=== PATIENT | female | born 1935 | race Caucasian/White ===

== ENCOUNTER → 2022-12-27 11:20 | Outpatient (BNVA) | payer MEDICARE, OTHER, SELFPAY | PROVIDERS: Family Provider Internal Medicine; Visit Provider Family Medicine | DX: I10 Essential (primary) hypertension (principal); Z98.61 Coronary angioplasty status; Z13.29 Encounter for screening for other suspected endocrine disorder; E53.8 Deficiency of other specified B group vitamins; F03.90 Unspecified dementia, unspecified severity, without behavioral disturbance, psychotic disturbance, mood disturbance, and anxiety; G50.0 Trigeminal neuralgia; Z95.5 Presence of coronary angioplasty implant and graft | CPT/HCPCS: 80053; 80061; 82607; 84443 ==

== ENCOUNTER → 2023-01-26 15:48 | Outpatient (BNVA) | payer MEDICARE, OTHER, SELFPAY | PROVIDERS: Family Provider Internal Medicine; PCP Family Medicine; Visit Provider Internal Medicine Cardiovascular Disease | DX: R07.9 Chest pain, unspecified (principal); I25.10 Atherosclerotic heart disease of native coronary artery without angina pectoris; I10 Essential (primary) hypertension; F03.90 Unspecified dementia, unspecified severity, without behavioral disturbance, psychotic disturbance, mood disturbance, and anxiety; K21.9 Gastro-esophageal reflux disease without esophagitis; I44.0 Atrioventricular block, first degree; I45.19 Other right bundle-branch block | CPT/HCPCS: 93005; 99204 ==

== ENCOUNTER 2023-02-11 09:36 | Outpatient (CLI) | payer MEDICARE, OTHER, SELFPAY ==
--- NOTE | 2023-02-11 10:00 | USCV_ITS ---
Pam Mcclendon Age: 87 Gender: F : 1935 Exam Date: 02/11/2023 10:00 Ordering Phys: Sabrina Chowdhury MD ([email or web address]) Technologist: SARITA Exam Location: [facility] [place] Indication: ASHD BP: 116 / 68 HR: 59 Rhythm: Sinus Technical Quality: Suboptimal MEASUREMENTS (Male / Female) Normal Values 2D ECHO LVOT Diameter 2.0 cm LV Ejection Fraction MOD 2C 68.5 % LV Ejection Fraction 2C AL 69.1 % LA Diameter 2.6 cm LA Width 3.2 cm LA Height 4.3 cm RA Width 3.4 cm RA Height 4.7 cm Aorta at Sinotubular Diameter 2.3 cm IVC Diameter 1.5 cm M-MODE Aortic Annulus Diameter 2.5 cm LA Ao Ratio MM 0.9 MV E Point Septal Separation 0.4 cm DOPPLER AV Peak Velocity 160.0 cm/s LVOT Peak Velocity 113.0 cm/s AV Area Cont Eq vti 2.3 cm squared AV Area Cont Eq pk 2.2 cm squared MV Peak Velocity 118.0 cm/s MV Area PHT 3.3 cm squared Mitral E to A Ratio 0.6 MV E' Velocity 35.5 cm/s Mitral E to MV E' Ratio 9.4 Mitral E to LV E' Lateral Ratio 10.8 Mitral E to LV E' Septal Ratio 8.4 TR Peak Velocity 204.9 cm/s TR Peak Gradient 16.8 mmHg TR Mean Velocity 199.9 cm/s TR Mean Gradient 16.5 mmHg TR Velocity Time Integral 85.8 cm TV Peak E Velocity 35.0 cm/s Right Atrial Pressure 3.0 mmHg Pulmonary Artery Systolic Pressu 19.8 mmHg PV Peak Velocity 111.0 cm/s RV Acceleration Time 0.1 s RV Ejection Time 0.3 s RV AcT/ET 0.2 FINDINGS Left Ventricle Normal left ventricular size and systolic function, EF 62 %. No regional wall motion abnormalities. Right Ventricle The right ventricle is normal in size and function. Right Atrium The right atrium is normal in size. Left Atrium The left atrium is normal in size. Mitral Valve No gross abnormalities noted Aortic Valve No gross abnormalities noted Tricuspid Valve Trace to mild tricuspid valve regurgitation. Pulmonic Valve No gross abnormalities noted Pericardium Normal pericardium without effusion. Aorta Normal ascending aorta dimension. IVC The inferior vena cava appears normal. CONCLUSIONS Normal left ventricular size and systolic function, EF 62 %. No regional wall motion abnormalities. Normal cardiac chamber sizes. No gross valvular abnormalities. Trace to mild tricuspid valve regurgitation. There is no pericardial effusion. There are no intracardiac masses. No similar previous studies are available for comparison Dr Sabrina Chowdhury MD FACC (Electronically Signed) Final Date: 11 February 2023 17:42 S
== END 2023-02-11 09:37 | disposition home or self-care (01) ==
PROVIDERS: PCP Family Medicine; Visit Provider Internal Medicine Cardiovascular Disease
DX: R06.09 Other forms of dyspnea (principal); I25.10 Atherosclerotic heart disease of native coronary artery without angina pectoris
CPT/HCPCS: 93306

== ENCOUNTER → 2023-04-06 09:12 | Outpatient (BNVA) | payer MEDICARE, OTHER, SELFPAY | PROVIDERS: PCP Family Medicine; Visit Provider Family Medicine | DX: M19.041 Primary osteoarthritis, right hand (principal); M25.541 Pain in joints of right hand | CPT/HCPCS: 73130 ==

== ENCOUNTER 2023-11-15 12:25 | Emergency (ER) | payer MEDICARE, OTHER, SELFPAY ==
--- NOTE | 2023-11-15 12:29 | CTR_ITS ---
PROCEDURE INFORMATION: Exam: CT Cervical Spine Without Contrast Exam date and time: 11/15/2023 1:07 PM Age: 88 years old Clinical indication: Injury or trauma; Fall; Blunt trauma TECHNIQUE: Imaging protocol: Computed tomography of the cervical spine without contrast. Radiation optimization: All CT scans at this facility use at least one of these dose optimization techniques: automated exposure control; mA and/or kV adjustment per patient size (includes targeted exams where dose is matched to clinical indication); or iterative reconstruction. COMPARISON: CT head wo con* [id number] 11/15/2023 1:07 PM RADIATION DOSE METRICS: Total DLP (mGy-cm): 133 FINDINGS: Bones: Diffuse osteopenia. No fracture. No destructive bony process identified. Mild right C2-C3 primary facet osteoarthritis. Moderate left C3-C4 primary facet osteoarthritis. Moderate left C3-C4 neural foraminal narrowing. Slight C3-C4 anterolisthesis. Moderate right C4-C5 neural foraminal narrowing. Mild right C4-C5 primary facet osteoarthritis. C4-C5, C5-6 and C6-7 degenerative disc disease with mild spondylosis. Moderate left C5-C6 neural foraminal narrowing. Mild left C7-T1 primary facet osteoarthritis. Lungs: Lung apices are normal. Vasculature: Bilateral carotid atherosclerotic calcifications. Soft tissues: Unremarkable. CT/CT cervical spin wo con* [id number] IMPRESSION: 1. Degenerative changes as above. 2. No acute cervical spinal bony injury identified.
--- NOTE | 2023-11-15 12:29 | CTR_ITS ---
PROCEDURE INFORMATION: Exam: CT Head Without Contrast Exam date and time: 11/15/2023 1:07 PM Age: 88 years old Clinical indication: Injury or trauma; Fall; Blunt trauma (contusions or hematomas); Additional info: [facility] TECHNIQUE: Imaging protocol: Computed tomography of the head without contrast. Radiation optimization: All CT scans at this facility use at least one of these dose optimization techniques: automated exposure control; mA and/or kV adjustment per patient size (includes targeted exams where dose is matched to clinical indication); or iterative reconstruction. COMPARISON: CT cervical spin wo con* [id number] 11/15/2023 1:07 PM RADIATION DOSE METRICS: Total DLP (mGy-cm): 1097 FINDINGS: Brain: Moderate hypoattenuating foci are noted in the central cerebral, posterior superior periatrial and anterior lateral ventricular periventricular white matter bilaterally. No intracranial hemorrhage. No mass or acute cortical infarction identified. Ventricles: Prominence of the ventricular system and subarachnoid spaces is consistent with the patient's age of 88 years. Paranasal sinuses: Visualized sinuses are unremarkable. No fluid levels. Mastoid air cells: Visualized mastoid air cells are well aerated. Bones: Unremarkable. No acute fracture. Soft tissues: Unremarkable. Vasculature: Atherosclerotic calcifications are present involving the carotid artery siphons and vertebral arteries bilaterally. CT/CT head wo con* [id number] IMPRESSION: 1. Age appropriate supratentorial and infratentorial atrophy. 2. Moderate chronic white matter microvascular ischemic disease. 3. No acute intracranial injury identified.
[2023-11-15 12:39] VITALS: BP 145/70; PULSE 62; RESP 16; TEMP 36.7; O2SAT 96
[2023-11-15 14:52] VITALS: BP 167/78; PULSE 63; RESP 16; O2SAT 97
--- NOTE | 2023-11-15 14:58 | W.ED.FALL ---
HPI - Fall General: Chief Complaint: Fall Stated Complaint: Pain on head and neck from fall Time Seen by Provider: 11/15/23 14:23 Source: patient Mode of arrival: ambulatory Limitations: no limitations History of Present Illness: 88-year-old female states she had tripped on a rock fell backwards and struck her head this happened roughly 3 hours ago. She denies any loss conscious states she does have a headache she rates a 5 out of 10 along with mild neck pain she denies any other injuries she has been ambulatory since the event. Associated symptoms-after fall: Reports headache(s) and neck pain; Denies abdominal pain or chest pain Review of Systems Const: Denies: fever(s), chills, body aches or change in appetite Eyes: Denies: blurry vision or eye discomfort ENMT: Denies: throat pain or dental pain Card: Denies: chest pain Resp: Denies: dyspnea GI: Denies: abdominal pain, nausea, vomiting or diarrhea Musc: Reports: neck pain; Denies: back pain Skin/Breast: Denies: rash Neuro: Reports: headache(s) PFSH ED PFSH: Medical History Enrolled in chronic care management please do not remove from active GERD (gastroesophageal reflux disease) DJD (degenerative joint disease) Hypertension Trigeminal neuralgia First degree AV block Surgical History Hx of CABG (~2013) History of tubal ligation Hx of coronary angioplasty (~2014) Family History Other CAD (coronary artery disease) Hypertension Social History Smoking and tobacco/nicotine status: never used tobacco/nicotine Alcohol intake: never Lives independently: No Household members: spouse Marital status: Physical Exam Const: COMMON NORMALS: no acute distress, patient oriented x3 and healthy appearing HENMT: OTHER: Posterior hematoma noted on exam Eye: COMMON NORMALS: Equal, round and reactive pupils present and EOMs intact bilaterally PUPIL: Yes Equal, round and reactive pupils present Neck/C-Spine: COMMON NORMALS: full ROM and supple Chest: COMMONS NORMALS: normal inspection of the chest and normal palpation of entire chest wall Resp: COMMON NORMALS: normal respiratory effort Cardio: COMMON NORMALS: regular rate, regular rhythm and No murmurs present (Cardio) RATE: regular rate RHYTHM: regular rhythm Extremity: COMMON NORMALS: normal to inspection and full ROM Neuro: COMMON NORMALS: patient oriented x3, moves all extremities and no focal motor deficits Psych: COMMON NORMALS: mental status grossly normal, Normal thought process present and cooperative THOUGHT PROCESS: Normal thought process present Skin: COMMON NORMALS: no rashes or lesions noted and no wounds GENERAL SKIN EXAM: no rashes or lesions noted Course Vital Signs: Vital signs: Vital Signs Temperature 98.1 F 11/15/23 12:39 Pulse Rate 63 11/15/23 14:52 Respiratory Rate 16 11/15/23 14:52 Blood Pressure 167/78 11/15/23 14:52 Pulse Oximetry 97 11/15/23 14:52 Oxygen Delivery Me thod Room Air 11/15/23 14:52 MDM - Fall Medical Decision Making Patient presents with a closed head injury after a fall imaging here is normal patient is well-appearing here she stable for discharge follow-up PCP return if worsening. Medical Records I reviewed the patient's medical records. Lab Data Radiology Impressions Cervical Spine CT 11/15/23 12:29 IMPRESSION: 1. Degenerative changes as above. 2. No acute cervical spinal bony injury identified. Head CT 11/15/23 12:29 IMPRESSION: 1. Age appropriate supratentorial and infratentorial atrophy. 2. Moderate chronic white matter microvascular ischemic disease. 3. No acute intracranial injury identified. All radiology interpretation(s) finalized by discharge Discharge Plan Discharge Patient Disposition: Home Clinical Impression: Closed head injury, Fall Condition: Stable Prescriptions: No Action (DME) Rollator walker See Rx Instructions .Route .MEDSUPPLY Qty: 1 0RF Rx Instructions: As directed gabapentin 100 mg capsule 100 mg PO BID Qty: 180 1RF amlodipine 5 mg tablet 5 mg PO DAILY Qty: 90 1RF donepezil 10 mg tablet 10 mg PO .HS Qty: 90 1RF isosorbide mononitrate 30 mg tablet extended release 24 hr 30 mg PO DAILY Qty: 90 1RF clopidogrel 75 mg tablet 75 mg PO DAILY Qty: 90 1RF Discharge Orders: Discharge ED (Routine); Ordered 11/15/23 Ordered By: Juve Pickens Referrals: Alex Jin, [Primary Care Provider] - 4-7 days Discharge Diet: Advance as tolerated Discharge Activity: Resume usual activity Patient Instructions: Head Injury (ED) Coding Level of Care Code ED Cartoonist Special Effects for Denton Delgado
[2023-11-15 15:02] VITALS: BP 165/76; PULSE 66; RESP 16; O2SAT 96
== END 2023-11-15 15:04 | disposition home or self-care (01) ==
PROVIDERS: Emergency Provider Emergency Medicine; PCP Family Medicine
DX: S00.03XA Contusion of scalp, initial encounter (principal); Z79.02 Long term (current) use of antithrombotics/antiplatelets; I10 Essential (primary) hypertension; Z95.1 Presence of aortocoronary bypass graft; W01.198A Fall on same level from slipping, tripping and stumbling with subsequent striking against other object, initial encounter
CPT/HCPCS: 70450; 72125; 99284

== ENCOUNTER 2025-01-02 19:11 | Emergency (ER) | payer MEDICARE, OTHER, SELFPAY ==
[2025-01-02 19:12] VITALS: BP 182/79; PULSE 69; RESP 16; TEMP 36.5; O2SAT 97; BMI 21.5
--- NOTE | 2025-01-02 20:00 | ECG_ITS ---
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
[2025-01-02 20:08] VITALS: BP 186/94; PULSE 72; O2SAT 100
[2025-01-02 20:21] LABS: Hematocrit 38.2 % (36-47); Hemoglobin 12.20 g/dL (11.27-16.99); Mean Corpuscular HGB Conc 31.9 g/dL (30-55); Mean Corpuscular Hemoglobin 30.1 pg (27-33); Mean Corpuscular Volume 94.3 fl (85-98); Nucleated Red Blood Cells % 0 %; Platelet Count 189 10^3/cmm (157-399); Red Blood Count 4.05 10^6/uL (3.85-5.65); White Blood Count 5.02 10^3/uL (3.29-11.43)
--- NOTE | 2025-01-02 20:35 | ED_ITS ---
Documented by User: Fer Escoto MD 01/05/25 21:23 HPI - Altered Mental Status 2 General: Chief Complaint: Altered Mental Status Stated Complaint: 96 HOUR HOLD Time Seen by Provider: 01/02/25 19:23 History of Present Illness: Chief complaint is dementia and confusion. Reportedly the patient's recently and the patient has been unable to care for herself and her neighbor was concerned that she is mixing up her medications and was reportedly found wandering and unable to care for herself. Patient states she feels fine. Related Data Previous Rx's ?Medication ?Instructions ?Recorded Rollator walker #1 ea 04/06/23 gabapentin 100 mg capsule 100 mg PO BID #180 caps 11/20 06/16 amlodipine 5 mg tablet 5 mg PO DAILY #90 tabs 01/04 clopidogrel 75 mg tablet 75 mg PO DAILY #90 tabs 12/21 10/14 donepezil 10 mg tablet 10 mg PO .HS #90 tabs isosorbide mononitrate 30 mg 30 mg PO DAILY #90 tabs 0 01/04/25 tablet,extended release 24 hr Allergies Allergy/AdvReac Type Severity Reaction Status Date / Time aspirin Allergy Unknown unknown Verified 01/02/25 13:51 atorvastatin Allergy Unknown unknown Verified 01/02/25 13:51 buspirone Allergy Unknown unknown Verified 01/02/25 13:51 ciprofloxacin (From Cipro) Allergy Unknown unknown Verified 01/02/25 13:51 citalopram Allergy Unknown unknown Verified 01/02/25 13:51 clonazepam Allergy Unknown unknown Verified 01/02/25 13:51 guaifenesin Allergy Unknown unknown Verified 01/02/25 13:51 hydrochlorothiazide Allergy Unknown unknown Verified 01/02/25 13:51 lisinopril Allergy Unknown unknown Verified 01/02/25 13:51 metoprolol Allergy Unknown Unknown Verified 01/02/25 13:51 metronidazole Allergy Unknown Unknown Verified 01/02/25 13:51 onabotulinumtoxinA (From Allergy Unknown Unknown Verified 01/02/25 13:51 Botox) oxazepam Allergy Unknown unknown Verified 01/02/25 13:51 Penicillins Allergy Unknown unknown Verified 01/02/25 13:51 Tetracyclines Allergy Unknown unknown Verified 01/02/25 13:51 PFS ED 2 PFSH: Medical History (Updated 01/04/25 @ 12:25 by Finesse Matt MD) Enrolled in chronic care management please do not remove from active GERD (gastroesophageal reflux disease) DJD (degenerative joint disease) Hypertension Trigeminal neuralgia First degree AV block Surgical History Hx of CABG (~2013) History of tubal ligation Hx of coronary angioplasty (~2014) Family History Other CAD (coronary artery disease) Hypertension Social History Smoking and tobacco/nicotine status: never used tobacco/nicotine Alcohol intake: never Lives independently: No Household members: spouse Marital status: Physical Exam 2 Narrative: Patient is alert talkative pleasant sitting in a chair. She has no external signs of trauma to her head or extremities except for some older appearing crawford on her forearm which she states was from her puppy. Neck is supple. No tenderness over her neck or back. Lung sounds are clear. Heart regular rhythm. Abdomen soft nontender. Extremities warm well-perfused. No calf tenderness or pitting edema. No drift in her arms or legs. No facial droop. 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 Full range ocular motion. No conjunctival injection. Skin is warm and dry. She has moist mucous membranes. Speech is clear. No ataxia. Patient disoriented to place and time. 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 I did consult with Dr. Matt and he recommends attempting to get more information to determine her baseline to help determine if this is geriatric psych or if this is her baseline dementia and need social placement. At this point no one has come with the patient. There was an affidavit from a neighbor. Will continue to obtain more information and CBC CMP EKG urine drug screen alcohol level salicylate level urinalysis and acetaminophen level ordered. I suspect patient has chronic dementia and the loss of her has led to her being on her own without a help desk consultant from what information is available at this time. Patient did take Benadryl 25 mg to help her to relax as she states she is feeling very anxious about being here. Patient EKG to my interpretation shows sinus rhythm with a rate of 61 bpm with incomplete right bundle branch block and nonspecific ST segment changes. Patient denies having any fall or injury headache or chest pain or shortness of breath or fever or abdominal pain vomiting or diarrhea. She denies any new numbness weakness or tingling in her arms or legs. Nursing contacted the neighbor who said that the patient's 1 month ago. The neighbor states that ever since the she has had significant issues. Unclear if this is geriatric psych or if this is her chronic baseline and she just needs fci placement or social disposition. Nursing is attempting to contact family to obtain further information. Patient endorsed to Dr. Sood at [phone]. Lab Data 01/02/25 19:57 01/02/25 19:[address] 01/02/25 20:53 IMPRESSION: 1. No acute intracranial findings. 2. Re-demonstration of similar-appearing asymmetric atrophic changes/encephalomalacia of the right hippocampus / right medial temporal lobe (series 9, image 44). 3. Moderate periventricular and subcortical white matter hypodensities, findings are most compatible with changes of moderate burden chronic small-vessel disease. 4. Chronic/incidental findings as described above. Chest X-Ray 01/03/25 00:25 IMPRESSION: No acute cardiopulmonary findings. Laboratory Results WBC 5.02 10^3/uL (3.29-11.43) 01/02/25 19:57 RBC 4.05 10^6/uL (3.85-5.65) 01/02/25 19:57 Hgb 12.20 g/dL (11.27-16.99) 01/02/25 19:57 Hct 38.2 % (36-47) 01/02/25 19:57 MCV 94.3 fl (85-98) 01/02/25 19:57 MCH 30.1 pg (27-33) 01/02/25 19:57 MCHC 31.9 g/dL (30-55) 01/02/25 19:57 RDW 14.3 % (12.1-15.1) 01/02/25 19:57 Plt Count 189 10^3/cmm (157-399) 01/02/25 19:57 MPV 10.9 fL (7.4-10.4) H 01/02/25 19:57 Neut % (Auto) 56.3 % 01/02/25 19:57 Lymph % (Auto) 31.3 % 01/02/25 19:57 Hawkins % (Auto) 9.4 % 01/02/25 19:57 Eos % (Auto) 2.2 % 01/02/25 19:57 Baso % (Auto) 0.6 % 01/02/25 19:57 Neut # (Auto) 2.83 10^3/uL (1.8-7.7) 01/02/25 19:57 Lymph # (Auto) 1.6 10^3/uL (0.8-4.8) 01/02/25 19:57 Hawkins # (Auto) 0.5 10^3/uL (0.2-0.9) 01/02/25 19:57 Eos # (Auto) 0.1 10^3/uL (0.0-0.8) 01/02/25 19:57 Baso # (Auto) 0.0 10^3/uL (0.0-0.1) 01/02/25 19:57 Nucleated RBC % (auto) 0 % 01/02/25 19:57 Nucleated RBCs # 0.0 /100WBC 01/02/25 19:57 Sodium 137 mmol/L (136-145) 01/02/25 19:57 Potassium 3.8 mmol/L (3.5-5.1) 01/02/25 19:57 Chloride 98 mmol/L (98-107) 01/02/25 19:57 Carbon Dioxide 27 mmol/L (22-29) 01/02/25 19:57 Anion Gap 15.8 (5-19) 01/02/25 19:57 BUN 24 mg/dL (8-23) H 01/02/25 19:57 Creatinine 1.0 mg/dL (0.5-0.9) H 01/02/25 19:57 GFR Calculation Not Reportable 01/02/25 19:57 Glucose 106 mg/dL (65-115) 01/02/25 19:57 Calculated Osmolality 288 mOsm/kg (285-295) 01/02/25 19:57 Calcium 9.7 mg/dL (8.5-10.5) 01/02/25 19:57 Total Bilirubin 0.5 mg/dL (0.15-1.2) 01/02/25 19:57 AST 17 U/L (0-32) 01/02/25 19:57 ALT 8 U/L (0-33) 01/02/25 19:57 Alkaline Phosphatase 61 U/L (35-105) 01/02/25 19:57 Total Protein 6.7 g/dL (6.6-8.7) 01/02/25 19:57 Albumin 4.1 g/dL (3.5-5.2) 01/02/25 19: Globulin 2.6 g/dL (1.3-4.6) 01/02/25 19:57 TSH 5.42 uIU/mL (0.27-4.20) H 01/02/25 19:57 Urine Color Dark yellow (Yellow) A 01/02/25 21: Urine Appearance Cloudy (CLEAR) A 01/02/25 21: Urine pH 5.0 (5-7) 01/02/25 21: Ur Specific [place] 1.025 (1.005-1.030) 01/02/25 21: Urine Protein 1+ (Negative) A 01/02/25 21: Urine Glucose (UA) Negative (Normal) 01/02/25 21: Urine Ketones 1+ (Negative) H 01/02/25 21: Urine Blood Negative (Negative) 01/02/25 21: Urine Nitrate Negative (Negative) 01/02/25 21: Urine Bilirubin 2+ (Negative) H 01/02/25 21: Urine Urobilinogen 1.0 mg/dL (Negative) 01/02/25 21: Ur Leukocyte Esterase 1+ (Negative) A 01/02/25 21: Urine RBC 0-2 /hpf (0-2) 01/02/25 21: Urine WBC 6-10 /hpf (0-5) 01/02/25 21:22 Ur Squamous Epith Cells 11-20 /hpf (0-5) H 01/02/25 21:22 Amorphous Sediment Not Reportable 01/02/25 21:22 Urine Bacteria 1+ /hpf (NONE) H 01/02/25 21:22 Hyaline Casts 23.17 /lpf 01/02/25 21:22 Salicylates < 0.3 mg/dL (3-10) L 01/02/25 19:57 Urine Opiates Screen Negative ng/mL (Negative) 01/02/25 21:22 Acetaminophen < 5.0 ug/mL (10-30) L 01/02/25 19:57 Ur Barbiturates Screen Negative ng/mL (Negative) 01/02/25 21:22 Ur Phencyclidine Scrn Negative ng/mL (Negative) 01/02/25 21:22 Ur Amphetamines Screen Negative ng/mL (Negative) 01/02/25 21:22 U Benzodiazepines Scrn Negative ng/mL (Negative) 01/02/25 21:22 Urine Cocaine Screen Negative ng/mL (Negative) 01/02/25 21:22 U Marijuana (THC) Screen Negative ng/mL (Negative) 01/02/25 21:22 Ethyl Alcohol < 10 mg/dL (0-10) 01/02/25 19:57 Influenza A (PCR) Negative (Negative) 01/03/25 00:35 Influenza Type B (PCR) Negative (Negative) 01/03/25 00:35 RSV (PCR) Negative (Negative) 01/03/25 00:35 SARS-CoV-2 (PCR) Negative (Negative) 01/03/25 00:35 Discharge Plan Discharge Patient Disposition: Home Clinical Impression: Altered mental status, Dementia Condition: Stable Prescriptions: Continued donepezil 10 mg tablet 10 mg PO .HS Qty: 90 1RF isosorbide mononitrate 30 mg tablet extended release 24 hr 30 mg PO DAILY Qty: 90 1RF clopidogrel 75 mg tablet 75 mg PO DAILY Qty: 90 1RF amlodipine 5 mg tablet 5 mg PO DAILY Qty: 90 1RF No Action (DME) Rollator walker See Rx Instructions .Route .MEDSUPPLY Qty: 1 0RF Rx Instructions: As directed gabapentin 100 mg capsule 100 mg PO BID Qty: 180 1RF Discharge Orders: Discharge ED (Routine); Ordered 01/04/25 Ordered By: Madhav Erazo Referrals: Alex Jin DO [Primary Care Provider, Family Practice] Patient Instructions: Altered Mental Status (ED), Opioid Safety, Pain Management, Patient Portal & Shaheed Instructions Activity Restrictions/Additional Instructions: You are being discharged to [facility]. Orders been written for medication. You will be seen by a physician after admission there for further medical management. Print Language: Moroccan Coding Level of Care Code ED Countersinker Balance Screw Hole for Chg Fwd Documented by User: Sun Vitla MD 01/03/25 00:26 HPI - Altered Mental Status 2 General: Chief Complaint: Altered Mental Status Stated Complaint: 96 HOUR HOLD Time Seen by Provider: 01/02/25 19:23 Related Data Previous Rx's ?Medication ?Instructions ?Recorded Rollator walker #1 ea 04/06/23 gabapentin 100 mg capsule 100 mg PO BID #180 caps 11/20 06/16 amlodipine 5 mg tablet 5 mg PO DAILY #90 tabs 01/04 clopidogrel 75 mg tablet 75 mg PO DAILY #90 tabs 12/21 10/14 donepezil 10 mg tablet 10 mg PO .HS #90 tabs isosorbide mononitrate 30 mg 30 mg PO DAILY #90 tabs 0 01/04/25 tablet,extended release 24 hr Allergies Allergy/AdvReac Type Severity Reaction Status Date / Time aspirin Allergy Unknown unknown Verified 01/02/25 13:51 atorvastatin Allergy Unknown unknown Verified 01/02/25 13:51 buspirone Allergy Unknown unknown Verified 01/02/25 13:51 ciprofloxacin (From Cipro) Allergy Unknown unknown Verified 01/02/25 13:51 citalopram Allergy Unknown unknown Verified 01/02/25 13:51 clonazepam Allergy Unknown unknown Verified 01/02/25 13:51 guaifenesin Allergy Unknown unknown Verified 01/02/25 13:51 hydrochlorothiazide Allergy Unknown unknown Verified 01/02/25 13:51 lisinopril Allergy Unknown unknown Verified 01/02/25 13:51 metoprolol Allergy Unknown Unknown Verified 01/02/25 13:51 metronidazole Allergy Unknown Unknown Verified 01/02/25 13:51 onabotulinumtoxinA (From Allergy Unknown Unknown Verified 01/02/25 13:51 Botox) oxazepam Allergy Unknown unknown Verified 01/02/25 13:51 Penicillins Allergy Unknown unknown Verified 01/02/25 13:51 Tetracyclines Allergy Unknown unknown Verified 01/02/25 13:51 PFS ED 2 PFSH: Medical History (Updated 01/04/25 @ 12:25 by Finesse Matt MD) Enrolled in chronic care management please do not remove from active GERD (gastroesophageal reflux disease) DJD (degenerative joint disease) Hypertension Trigeminal neuralgia First degree AV block Surgical History Hx of CABG (~2013) History of tubal ligation Hx of coronary angioplasty (~2014) Family History Other CAD (coronary artery disease) Hypertension Social History Smoking and tobacco/nicotine status: never used tobacco/nicotine Alcohol intake: never Lives independently: No Household members: spouse Marital status: 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 I did consult with Dr. Matt and he recommends attempting to get more information to determine her baseline to help determine if this is geriatric psych or if this is her baseline dementia and need social placement. At this point no one has come with the patient. There was an affidavit from a neighbor. Will continue to obtain more information and CBC CMP EKG urine drug screen alcohol level salicylate level urinalysis and acetaminophen level ordered. I suspect patient has chronic dementia and the loss of her has led to her being on her own without a help desk consultant from what information is available at this time. Patient did take Benadryl 25 mg to help her to relax as she states she is feeling very anxious about being here. Patient EKG to my interpretation shows sinus rhythm with a rate of 61 bpm with incomplete right bundle branch block and nonspecific ST segment changes. Patient denies having any fall or injury headache or chest pain or shortness of breath or fever or abdominal pain vomiting or diarrhea. She denies any new numbness weakness or tingling in her arms or legs. Nursing contacted the neighbor who said that the patient's 1 month ago. The neighbor states that ever since the she has had significant issues. Unclear if this is geriatric psych or if this is her chronic baseline and she just needs fci placement or social disposition. Nursing is attempting to contact family to obtain further information. Patient endorsed to Dr. Sood at 2140. Patient care transitioned me at shift change. Final lab work and x-rays were pending. Also awaiting family to try to find out if patient needs fci admission or geriatric psychiatric admission. CT head: Atrophic changes. Encephalomalacia. Senescent changes. No acute intracranial process. no intracranial hemorrhage, no evidence of infarct. no evidence of acute fracture.This was reviewed and interpreted by myself the ER physician. Lab Data 01/02/25 19:57 01/02/25 19:[address] 01/02/25 20:53 IMPRESSION: 1. No acute intracranial findings. 2. Re-demonstration of similar-appearing asymmetric atrophic changes/encephalomalacia of the right hippocampus / right medial temporal lobe (series 9, image 44). 3. Moderate periventricular and subcortical white matter hypodensities, findings are most compatible with changes of moderate burden chronic small-vessel disease. 4. Chronic/incidental findings as described above. Chest X-Ray 01/03/25 00:25 IMPRESSION: No acute cardiopulmonary findings. Laboratory Results WBC 5.02 10^3/uL (3.29-11.43) 01/02/25 19:57 RBC 4.05 10^6/uL (3.85-5.65) 01/02/25 19:57 Hgb 12.20 g/dL (11.27-16.99) 01/02/25 19:57 Hct 38.2 % (36-47) 01/02/25 19:57 MCV 94.3 fl (85-98) 01/02/25 19:57 MCH 30.1 pg (27-33) 01/02/25 19:57 MCHC 31.9 g/dL (30-55) 01/02/25 19:57 RDW 14.3 % (12.1-15.1) 01/02/25 19:57 Plt Count 189 10^3/cmm (157-399) 01/02/25 19:57 MPV 10.9 fL (7.4-10.4) H 01/02/25 19:57 Neut % (Auto) 56.3 % 01/02/25 19:57 Lymph % (Auto) 31.3 % 01/02/25 19:57 Hawkins % (Auto) 9.4 % 01/02/25 19:57 Eos % (Auto) 2.2 % 01/02/25 19:57 Baso % (Auto) 0.6 % 01/02/25 19:57 Neut # (Auto) 2.83 10^3/uL (1.8-7.7) 01/02/25 19:57 Lymph # (Auto) 1.6 10^3/uL (0.8-4.8) 01/02/25 19:57 Hawkins # (Auto) 0.5 10^3/uL (0.2-0.9) 01/02/25 19:57 Eos # (Auto) 0.1 10^3/uL (0.0-0.8) 01/02/25 19:57 Baso # (Auto) 0.0 10^3/uL (0.0-0.1) 01/02/25 19:57 Nucleated RBC % (auto) 0 % 01/02/25 19:57 Nucleated RBCs # 0.0 /100WBC 01/02/25 19:57 Sodium 137 mmol/L (136-145) 01/02/25 19:57 Potassium 3.8 mmol/L (3.5-5.1) 01/02/25 19:57 Chloride 98 mmol/L (98-107) 01/02/25 19:57 Carbon Dioxide 27 mmol/L (22-29) 01/02/25 19:57 Anion Gap 15.8 (5-19) 01/02/25 19:57 BUN 24 mg/dL (8-23) H 01/02/25 19:57 Creatinine 1.0 mg/dL (0.5-0.9) H 01/02/25 19:57 GFR Calculation Not Reportable 01/02/25 19:57 Glucose 106 mg/dL (65-115) 01/02/25 19:57 Calculated Osmolality 288 mOsm/kg (285-295) 01/02/25 19:57 Calcium 9.7 mg/dL (8.5-10.5) 01/02/25 19:57 Total Bilirubin 0.5 mg/dL (0.15-1.2) 01/02/25 19:57 AST 17 U/L (0-32) 01/02/25 19:57 ALT 8 U/L (0-33) 01/02/25 19:57 Alkaline Phosphatase 61 U/L (35-105) 01/02/25 19:57 Total Protein 6.7 g/dL (6.6-8.7) 01/02/25 19:57 Albumin 4.1 g/dL (3.5-5.2) 01/02/25 19:57 Globulin 2.6 g/dL (1.3-4.6) 01/02/25 19:57 TSH 5.42 uIU/mL (0.27-4.20) H 01/02/25 19:57 Urine Color Dark yellow (Yellow) A 01/02/25 21:22 Urine Appearance Cloudy (CLEAR) A 01/02/25 21:22 Urine pH 5.0 (5-7) 01/02/25 21:22 Ur Specific [place] 1.025 (1.005-1.030) 01/02/25 21: Urine Protein 1+ (Negative) A 01/02/25 21: Urine Glucose (UA) Negative (Normal) 01/02/25 21: Urine Ketones 1+ (Negative) H 01/02/25 21:22 Urine Blood Negative (Negative) 01/02/25 21: Urine Nitrate Negative (Negative) 01/02/25 21: Urine Bilirubin 2+ (Negative) H 01/02/25 21:22 Urine Urobilinogen 1.0 mg/dL (Negative) 01/02/25 21:22 Ur Leukocyte Esterase 1+ (Negative) A 01/02/25 21:22 Urine RBC 0-2 /hpf (0-2) 01/02/25 21:22 Urine WBC 6-10 /hpf (0-5) 01/02/25 21:22 Ur Squamous Epith Cells 11-20 /hpf (0-5) H 01/02/25 21:22 Amorphous Sediment Not Reportable 01/02/25 21:22 Urine Bacteria 1+ /hpf (NONE) H 01/02/25 21:22 Hyaline Casts 23.17 /lpf 01/02/25 21:22 Salicylates < 0.3 mg/dL (3-10) L 01/02/25 19:57 Urine Opiates Screen Negative ng/mL (Negative) 01/02/25 21:22 Acetaminophen < 5.0 ug/mL (10-30) L 01/02/25 19:57 Ur Barbiturates Screen Negative ng/mL (Negative) 01/02/25 21:22 Ur Phencyclidine Scrn Negative ng/mL (Negative) 01/02/25 21:22 Ur Amphetamines Screen Negative ng/mL (Negative) 01/02/25 21:22 U Benzodiazepines Scrn Negative ng/mL (Negative) 01/02/25 21:22 Urine Cocaine Screen Negative ng/mL (Negative) 01/02/25 21:22 U Marijuana (THC) Screen Negative ng/mL (Negative) 01/02/25 21:22 Ethyl Alcohol < 10 mg/dL (0-10) 01/02/25 19:57 Influenza A (PCR) Negative (Negative) 01/03/25 00:35 Influenza Type B (PCR) Negative (Negative) 01/03/25 00:35 RSV (PCR) Negative (Negative) 01/03/25 00:35 SARS-CoV-2 (PCR) Negative (Negative) 01/03/25 00:35 All radiology interpretation(s) finalized by discharge Discharge Plan Discharge Patient Disposition: Home Clinical Impression: Altered mental status, Dementia Condition: Stable Prescriptions: Continued donepezil 10 mg tablet 10 mg PO .HS Qty: 90 1RF isosorbide mononitrate 30 mg tablet extended release 24 hr 30 mg PO DAILY Qty: 90 1RF clopidogrel 75 mg tablet 75 mg PO DAILY Qty: 90 1RF amlodipine 5 mg tablet 5 mg PO DAILY Qty: 90 1RF No Action (DME) Rollator walker See Rx Instructions .Route .MEDSUPPLY Qty: 1 0RF Rx Instructions: As directed gabapentin 100 mg capsule 100 mg PO BID Qty: 180 1RF Discharge Orders: Discharge ED (Routine); Ordered 01/04/25 Ordered By: Madhav Erazo Referrals: Alex Jin, [Primary Care Provider, Family Practice] Patient Instructions: Altered Mental Status (ED), Opioid Safety, Pain Management, Patient Portal & Shaheed Instructions Activity Restrictions/Additional Instructions: You are being discharged to [facility]. Orders been written for medication. You will be seen by a physician after admission there for further medical management. Print Language: Moroccan Coding Level of Care Code ED Countersinker Balance Screw Hole for Chg Fwd Documented by User: Magno Grigsby DO 01/08/25 14:38 HPI - Altered Mental Status 2 General: Chief Complaint: Altered Mental Status Stated Complaint: 96 HOUR HOLD Time Seen by Provider: 01/02/25 19:23 Related Data Previous Rx's ?Medication ?Instructions ?Recorded Rollator walker #1 ea 04/06/23 gabapentin 100 mg capsule 100 mg PO BID #180 caps 11/20 06/16 amlodipine 5 mg tablet 5 mg PO DAILY #90 tabs 01/04 clopidogrel 75 mg tablet 75 mg PO DAILY #90 tabs 12/21 10/14 donepezil 10 mg tablet 10 mg PO .HS #90 tabs isosorbide mononitrate 30 mg 30 mg PO DAILY #90 tabs 0 01/04/25 tablet,extended release 24 hr Allergies Allergy/AdvReac Type Severity Reaction Status Date / Time aspirin Allergy Unknown unknown Verified 01/02/25 13:51 atorvastatin Allergy Unknown unknown Verified 01/02/25 13:51 buspirone Allergy Unknown unknown Verified 01/02/25 13:51 ciprofloxacin (From Cipro) Allergy Unknown unknown Verified 01/02/25 13:51 citalopram Allergy Unknown unknown Verified 01/02/25 13:51 clonazepam Allergy Unknown unknown Verified 01/02/25 13:51 guaifenesin Allergy Unknown unknown Verified 01/02/25 13:51 hydrochlorothiazide Allergy Unknown unknown Verified 01/02/25 13:51 lisinopril Allergy Unknown unknown Verified 01/02/25 13:51 metoprolol Allergy Unknown Unknown Verified 01/02/25 13:51 metronidazole Allergy Unknown Unknown Verified 01/02/25 13:51 onabotulinumtoxinA (From Allergy Unknown Unknown Verified 01/02/25 13:51 Botox) oxazepam Allergy Unknown unknown Verified 01/02/25 13:51 Penicillins Allergy Unknown unknown Verified 01/02/25 13:51 Tetracyclines Allergy Unknown unknown Verified 01/02/25 13:51 PFS ED 2 PFSH: Medical History (Updated 01/04/25 @ 12:25 by Finesse Matt MD) Enrolled in chronic care management please do not remove from active GERD (gastroesophageal reflux disease) DJD (degenerative joint disease) Hypertension Trigeminal neuralgia First degree AV block Surgical History Hx of CABG (~2013) History of tubal ligation Hx of coronary angioplasty (~2014) Family History Other CAD (coronary artery disease) Hypertension Social History Smoking and tobacco/nicotine status: never used tobacco/nicotine Alcohol intake: never Lives independently: No Household members: spouse Marital status: 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 I did consult with Dr. Matt and he recommends attempting to get more information to determine her baseline to help determine if this is geriatric psych or if this is her baseline dementia and need social placement. At this point no one has come with the patient. There was an affidavit from a neighbor. Will continue to obtain more information and CBC CMP EKG urine drug screen alcohol level salicylate level urinalysis and acetaminophen level ordered. I suspect patient has chronic dementia and the loss of her has led to her being on her own without a help desk consultant from what information is available at this time. Patient did take Benadryl 25 mg to help her to relax as she states she is feeling very anxious about being here. Patient EKG to my interpretation shows sinus rhythm with a rate of 61 bpm with incomplete right bundle branch block and nonspecific ST segment changes. Patient denies having any fall or injury headache or chest pain or shortness of breath or fever or abdominal pain vomiting or diarrhea. She denies any new numbness weakness or tingling in her arms or legs. Nursing contacted the neighbor who said that the patient's 1 month ago. The neighbor states that ever since the she has had significant issues. Unclear if this is geriatric psych or if this is her chronic baseline and she just needs fci placement or social disposition. Nursing is attempting to contact family to obtain further information. Patient endorsed to Dr. Sood at [phone]. Patient care transitioned me at shift change. Final lab work and x-rays were pending. Also awaiting family to try to find out if patient needs [facility] admission or geriatric psychiatric admission. CT head: Atrophic changes. Encephalomalacia. Senescent changes. No acute intracranial process. no intracranial hemorrhage, no evidence of infarct. no evidence of acute fracture.This was reviewed and interpreted by myself the ER physician. Care assumed at change of shift to Dr. Matt consult. He feels her issues are entirely dementia related that there is no acute psychosis here. Staff is continuing to work on placement. Ultimately we were able to get the [facility] placed at [facility]. [facility] be [facility] by EMS. Medical Records I reviewed the patient's medical records. Lab Data I reviewed the patient's lab results. 01/02/25 19:57 01/02/25 19:[address] 01/02/25 20:53 IMPRESSION: 1. No acute intracranial findings. 2. Re-demonstration of similar-appearing asymmetric atrophic changes/encephalomalacia of the right hippocampus / right medial temporal lobe (series 9, image 44). 3. Moderate periventricular and subcortical white matter hypodensities, findings are most compatible with changes of moderate burden chronic small-vessel disease. 4. Chronic/incidental findings as described above. Chest X-Ray 01/03/25 00:25 IMPRESSION: No acute cardiopulmonary findings. Laboratory Results WBC 5.02 10^3/uL (3.29-11.43) 01/02/25 19:57 RBC 4.05 10^6/uL (3.85-5.65) 01/02/25 19:57 Hgb 12.20 g/dL (11.27-16.99) 01/02/25 19:57 Hct 38.2 % (36-47) 01/02/25 19:57 MCV 94.3 fl (85-98) 01/02/25 19:57 MCH 30.1 pg (27-33) 01/02/25 19:57 MCHC 31.9 g/dL (30-55) 01/02/25 19:57 RDW 14.3 % (12.1-15.1) 01/02/25 19:57 Plt Count 189 10^3/cmm (157-399) 01/02/25 19:57 MPV 10.9 fL (7.4-10.4) H 01/02/25 19:57 Neut % (Auto) 56.3 % 01/02/25 19:57 Lymph % (Auto) 31.3 % 01/02/25 19:57 Hawkins % (Auto) 9.4 % 01/02/25 19:57 Eos % (Auto) 2.2 % 01/02/25 19:57 Baso % (Auto) 0.6 % 01/02/25 19:57 Neut # (Auto) 2.83 10^3/uL (1.8-7.7) 01/02/25 19:57 Lymph # (Auto) 1.6 10^3/uL (0.8-4.8) 01/02/25 19:57 Hawkins # (Auto) 0.5 10^3/uL (0.2-0.9) 01/02/25 19:57 Eos # (Auto) 0.1 10^3/uL (0.0-0.8) 01/02/25 19:57 Baso # (Auto) 0.0 10^3/uL (0.0-0.1) 01/02/25 19:57 Nucleated RBC % (auto) 0 % 01/02/25 19:57 Nucleated RBCs # 0.0 /100WBC 01/02/25 19:57 Sodium 137 mmol/L (136-145) 01/02/25 19:57 Potassium 3.8 mmol/L (3.5-5.1) 01/02/25 19:57 Chloride 98 mmol/L (98-107) 01/02/25 19:57 Carbon Dioxide 27 mmol/L (22-29) 01/02/25 19:57 Anion Gap 15.8 (5-19) 01/02/25 19:57 BUN 24 mg/dL (8-23) H 01/02/25 19:57 Creatinine 1.0 mg/dL (0.5-0.9) H 01/02/25 19:57 GFR Calculation Not Reportable 01/02/25 19:57 Glucose 106 mg/dL (65-115) 01/02/25 19:57 Calculated Osmolality 288 mOsm/kg (285-295) 01/02/25 19:57 Calcium 9.7 mg/dL (8.5-10.5) 01/02/25 19:57 Total Bilirubin 0.5 mg/dL (0.15-1.2) 01/02/25 19:57 AST 17 U/L (0-32) 01/02/25 19:57 ALT 8 U/L (0-33) 01/02/25 19:57 Alkaline Phosphatase 61 U/L (35-105) 01/02/25 19:57 Total Protein 6.7 g/dL (6.6-8.7) 01/02/25 19:57 Albumin 4.1 g/dL (3.5-5.2) 01/02/25 19:57 Globulin 2.6 g/dL (1.3-4.6) 01/02/25 19:57 TSH 5.42 uIU/mL (0.27-4.20) H 01/02/25 19:57 Urine Color Dark yellow (Yellow) A 01/02/25 21:22 Urine Appearance Cloudy (CLEAR) A 01/02/25 21:22 Urine pH 5.0 (5-7) 01/02/25 21:22 Ur Specific [place] 1.025 (1.005-1.030) 01/02/25 21:22 Urine Protein 1+ (Negative) A 01/02/25 21: Urine Glucose (UA) Negative (Normal) 01/02/25 21:22 Urine Ketones 1+ (Negative) H 01/02/25 21:22 Urine Blood Negative (Negative) 01/02/25 21: Urine Nitrate Negative (Negative) 01/02/25 21: Urine Bilirubin 2+ (Negative) H 01/02/25 21:22 Urine Urobilinogen 1.0 mg/dL (Negative) 01/02/25 21: Ur Leukocyte Esterase 1+ (Negative) A 01/02/25 21: Urine RBC 0-2 /hpf (0-2) 01/02/25 21:22 Urine WBC 6-10 /hpf (0-5) 01/02/25 21:22 Ur Squamous Epith Cells 11-20 /hpf (0-5) H 01/02/25 21:22 Amorphous Sediment Not Reportable 01/02/25 21:22 Urine Bacteria 1+ /hpf (NONE) H 01/02/25 21:22 Hyaline Casts 23.17 /lpf 01/02/25 21:22 Salicylates < 0.3 mg/dL (3-10) L 01/02/25 19:57 Urine Opiates Screen Negative ng/mL (Negative) 01/02/25 21:22 Acetaminophen < 5.0 ug/mL (10-30) L 01/02/25 19:57 Ur Barbiturates Screen Negative ng/mL (Negative) 01/02/25 21:22 Ur Phencyclidine Scrn Negative ng/mL (Negative) 01/02/25 21:22 Ur Amphetamines Screen Negative ng/mL (Negative) 01/02/25 21:22 U Benzodiazepines Scrn Negative ng/mL (Negative) 01/02/25 21:22 Urine Cocaine Screen Negative ng/mL (Negative) 01/02/25 21:22 U Marijuana (THC) Screen Negative ng/mL (Negative) 01/02/25 21:22 Ethyl Alcohol < 10 mg/dL (0-10) 01/02/25 19:57 Influenza A (PCR) Negative (Negative) 01/03/25 00:35 Influenza Type B (PCR) Negative (Negative) 01/03/25 00:35 RSV (PCR) Negative (Negative) 01/03/25 00:35 SARS-CoV-2 (PCR) Negative (Negative) 01/03/25 00:35 Discharge Plan Discharge Patient Disposition: Home Clinical Impression: Altered mental status, Dementia Condition: Stable Prescriptions: Continued donepezil 10 mg tablet 10 mg PO .HS Qty: 90 1RF isosorbide mononitrate 30 mg tablet extended release 24 hr 30 mg PO DAILY Qty: 90 1RF clopidogrel 75 mg tablet 75 mg PO DAILY Qty: 90 1RF amlodipine 5 mg tablet 5 mg PO DAILY Qty: 90 1RF No Action (DME) Rollator walker See Rx Instructions .Route .MEDSUPPLY Qty: 1 0RF Rx Instructions: As directed gabapentin 100 mg capsule 100 mg PO BID Qty: 180 1RF Discharge Orders: Discharge ED (Routine); Ordered 01/04/25 Ordered By: Madhav Erazo Referrals: Alex Jin, [Primary Care Provider, Family Practice] Patient Instructions: Altered Mental Status (ED), Opioid Safety, Pain Management, Patient Portal & Shaheed Instructions Activity Restrictions/Additional Instructions: You are being discharged to [facility]. Orders been written for medication. You will be seen by a physician after admission there for further medical management. Print Language: Moroccan Coding Level of Care Code ED Countersinker Balance Screw Hole for Denton Delgado
[2025-01-02 20:49] LABS: Alanine Aminotransferase 8 U/L (0-33); Albumin Level 4.1 g/dL (3.5-5.2); Alkaline Phosphatase 61 U/L (35-105); Anion Gap 15.8 (5-19); Aspartate Amino Transferase 17 U/L (0-32); Blood Urea Nitrogen 24 mg/dL (8-23); Calcium 9.7 mg/dL (8.5-10.5); Carbon Dioxide 27 mmol/L (22-29); Chloride 98 mmol/L (98-107); Creatinine Clr Calc Pharmacy 30.9890; Globulin 2.6 g/dL (1.3-4.6); Glucose 106 mg/dL (65-115); Osmolality Calculated 288 mOsm/kg (285-295); Potassium 3.8 mmol/L (3.5-5.1); Sodium 137 mmol/L (136-145); Thyroid Stimulating Hormone 5.42 uIU/mL (0.27-4.20); Total Protein 6.7 g/dL (6.6-8.7)
[2025-01-02 20:51] LABS: Acetaminophen < 5.0 ug/mL (10-30); Alcohol Level < 10 mg/dL (0-10); Salicylate < 0.3 mg/dL (3-10)
--- NOTE | 2025-01-02 20:53 | CTR_ITS ---
PROCEDURE INFORMATION: Exam: CT Head Without Contrast Exam date and time: 01/02/2025 9:46 PM Age: 89 years old Clinical indication: Altered mental status/memory loss; Age related cognitive decline; Additional info: AMS TECHNIQUE: Imaging protocol: Computed tomography of the head without contrast. Radiation optimization: All CT scans at this facility use at least one of these dose optimization techniques: automated exposure control; mA and/or kV adjustment per patient size (includes targeted exams where dose is matched to clinical indication); or iterative reconstruction. COMPARISON: CT head wo con* [id number] 11/15/2023 1:07 PM RADIATION DOSE METRICS: Total DLP (mGy-cm): 1052.75 FINDINGS: Brain: No acute intracranial hemorrhage, abnormal extra-axial fluid collection, mass effect, or midline shift. Moderate periventricular and subcortical white matter hypodensities compatible with changes of moderate burden chronic small-vessel disease. Re-demonstration of similar-appearing atrophic changes/encephalomalacia of the right hippocampus / right medial temporal lobe (series 9, image 44). Prominence of the sulci and extra-axial spaces compatible with age related global involutional changes. Cerebral ventricles: The ventricular system is within normal limits of variation for the patient's age. Paranasal sinuses: Partially imaged right maxillary sinus mucosal thickening versus mucous retention cysts, the remainder of the visualized paranasal sinuses are well aerated and unremarkable in appearance. Mastoid air cells: Visualized mastoid air cells are well aerated. Bones: No acute fracture. Soft tissues: Grossly unremarkable. Vasculature: Atheromatous changes are seen within the intracranial portions of the bilateral internal carotid arteries and V4 segments of the bilateral vertebral arteries. CT/CT head wo con* [id number] IMPRESSION: 1. No acute intracranial findings. 2. Re-demonstration of similar-appearing asymmetric atrophic changes/encephalomalacia of the right hippocampus / right medial temporal lobe (series 9, image 44). 3. Moderate periventricular and subcortical white matter hypodensities, findings are most compatible with changes of moderate burden chronic small-vessel disease. 4. Chronic/incidental findings as described above.
[2025-01-02 21:27] LABS: Glucose Urine UA Negative (Normal); Nitrate Urine Negative (Negative); Specific Gravity, Urine 1.025 (1.005-1.030)
[2025-01-02 21:32] LABS: Add Urine Microscopic? YES
--- NOTE | 2025-01-02 21:32 | PC.NURSE ---
Attempted to review 96 Hour Involuntary Hold Patient Rights with patient but she is unable to comprehend at this time. Patient keeps repeating she has 2 babies at home and she has to go home and take care of them, she states she is not staying here. Veneer Puller Wilner Paz was present at bedside during the time of presentation of Rights.
[2025-01-02] MEDS: haloperidol inj 5 mg/mL INJ 1 mL IM (22:42)
--- NOTE | 2025-01-03 00:25 | XRR_ITS ---
PROCEDURE INFORMATION: Exam: XR Chest Exam date and time: 01/03/2025 12:42 AM Age: 89 years old Clinical indication: Screening exam; Other screening; Additional info: Psychiatric work up TECHNIQUE: Imaging protocol: Radiologic exam of the chest. Views: 1 view. COMPARISON: CT cervical spin wo con* [id number] 11/15/2023 1:07 PM FINDINGS: Lungs: No consolidation. Pleural spaces: No pleural effusion. No pneumothorax. Heart/Mediastinum: No cardiomegaly. Bones/joints: No acute fracture. XR/XR chest 1V portable [id number] IMPRESSION: No acute cardiopulmonary findings.
[2025-01-03 00:30] VITALS: BP 124/84; PULSE 57; O2SAT 98
[2025-01-03 01:26] LABS: PCP Screen Urine Negative (Negative)
[2025-01-03 01:29] LABS: Respiratory Syncytial Virus Ce NEGATIVE (Negative); SARS-CoV-2 PCR NEGATIVE (Negative)
[2025-01-03 06:18] VITALS: BP 164/84; PULSE 60; O2SAT 95
--- NOTE | 2025-01-03 07:33 | PC.PHAR ---
Pts medications are all current except Gabapentin 100mg bid-last fill 07/10/24 90ds-it has not been refilled since that date.
[2025-01-03 17:50] VITALS: BP 154/83; PULSE 70; O2SAT 98
[2025-01-03 18:00] VITALS: BP 154/83; PULSE 70; RESP 16; O2SAT 98
--- NOTE | 2025-01-03 19:18 | W.PM.PSYCONS ---
Providers/Reason for Consult Consulting Physican/Specialty*: Finesse Matt MD. Psychiatry. Reason for Consult*: Evaluate for any need for inpatient psychiatric care. Primary Care Provider: Alex Jin, Psych Consult HPI History of Present Illness Pam Mcclendon is a 89 year old female who presented to the emergency department with the following report: Chief Complaint: Altered Mental Status Stated Complaint: 96 HOUR HOLD Time Seen by Provider: 01/02/25 19:23 History of Present Illness: Chief complaint is dementia and confusion. Reportedly the patient's recently and the patient has been unable to care for herself and her neighbor was concerned that she is mixing up her medications and was reportedly found wandering and unable to care for herself. Patient states she feels fine. The patient seemed to be a clear-cut case of dementia at a level that needed institutional intervention but there was some concern about whether there might be some acute psychiatric issue and so a psychiatric consult was requested to rule out a need for any inpatient or acute psychiatric care. Patient is unknown to [facility] psychiatry through inpatient or outpatient services. There is an encounter/mental health assessment with no document in the system from 2010 and missed follow-up appointment some months later. Otherwise most of her care has been related to primary care interactions. Her primary physician did identify dementia as active issue in 2022. When this was brought to her attention she continue to deny any issues. She was not oriented to time or purpose. She reports that she has family members that live with her that is not what her neighbors reported. Unlike the interactions yesterday she did identify that her had . When she was in her were state of confusion the previous evening she seemed to understand that her had but was under the impression that it had been 2 to 3 years since his . She was incapable of recalling his birthday even though she did acknowledge they have been for upwards of possibly 60 years. We did review his obituary together and she did identify that the obituary was accurate for her but she was not able to wrap her head around the fact that he on November 25 or 2024 versus the 2 to 3-year period that she described. She was unable to do some simple problem-solving questions that were asked of her. She was only able to identify that in her mind going back home was the solution that would make the most sense. She could not explain why her neighbors were identifying that she was alone and had been alone and was wandering outside. She did not recall this part of the story and struggled with that. She denied any history of inpatient or significant outpatient services. She denied any significant addiction history. She denied significant depression or anxiety but reports like anyone she has had a tough time here there in her life. That was the only explanation she gave for why she may have had reports of allergies to Celexa and BuSpar as well as other medications that would be used for anxiety and/or depression. But she was clear that she had no thoughts to hurt herself or anyone else, that she was not depressed and that she had no active concerns. She denied any issues with psychosis, OCD or any other significant concerns. We discussed the risks, benefits and alternatives of is getting some collateral information from her nieces and discussed additionally a need for some kind of intervention to make sure she was safe given her presentation and she understood and agreed to proceed as is documented in this note. Meds Home Medications and Allergies Home Medications ?Medication ?Instructions ?Recorded ?Confirmed ?Last Taken ?Type Rollator walker #1 ea 04/06/23 01/03/25 Unknown Rx amlodipine 5 mg tablet 5 mg PO DAILY #90 tabs 11/30/24 01/03/25 Unknown Rx clopidogrel 75 mg tablet 75 mg PO DAILY #90 tabs 11/30/24 01/03/25 Unknown Rx donepezil 10 mg tablet 10 mg PO .HS #90 tabs 11/30/24 01/03/25 Unknown Rx gabapentin 100 mg capsule 100 mg PO BID #180 caps 11/30/24 01/03/25 Unknown Rx isosorbide mononitrate 30 mg 30 mg PO DAILY #90 tabs 11/30/24 01/03/25 Unknown Rx tablet,extended release 24 hr Allergies Allergy/AdvReac Type Severity Reaction Status Date / Time aspirin Allergy Unknown unknown Verified 01/02/25 13:51 atorvastatin Allergy Unknown unknown Verified 01/02/25 13:51 buspirone Allergy Unknown unknown Verified 01/02/25 13:51 ciprofloxacin (From Cipro) Allergy Unknown unknown Verified 01/02/25 13:51 citalopram Allergy Unknown unknown Verified 01/02/25 13:51 clonazepam Allergy Unknown unknown Verified 01/02/25 13:51 guaifenesin Allergy Unknown unknown Verified 01/02/25 13:51 hydrochlorothiazide Allergy Unknown unknown Verified 01/02/25 13:51 lisinopril Allergy Unknown unknown Verified 01/02/25 13:51 metoprolol Allergy Unknown Unknown Verified 01/02/25 13:51 metronidazole Allergy Unknown Unknown Verified 01/02/25 13:51 onabotulinumtoxinA (From Allergy Unknown Unknown Verified 01/02/25 13:51 Botox) oxazepam Allergy Unknown unknown Verified 01/02/25 13:51 Penicillins Allergy Unknown unknown Verified 01/02/25 13:51 Tetracyclines Allergy Unknown unknown Verified 01/02/25 13:51 PFSH NPU PFSH: Medical History (Updated 01/04/25 @ 12:25 by Finesse Matt MD) Enrolled in chronic care management please do not remove from active GERD (gastroesophageal reflux disease) DJD (degenerative joint disease) Hypertension Trigeminal neuralgia First degree AV block Surgical History Hx of CABG (~2013) History of tubal ligation Hx of coronary angioplasty (~2014) Family History Other CAD (coronary artery disease) Hypertension Social History Smoking and tobacco/nicotine status: never used tobacco/nicotine Alcohol intake: never Lives independently: No Household members: spouse Marital status: Mental Status Exam MSE Comments: This is a well-nourished well-developed elderly white female with adequate dress, grooming and eye contact. No abnormal movements except for mild psychomotor retardation. Cooperative with exam in no acute distress. Speech was slightly decreased rate and volume. Mood described as fine, affect congruent but occasionally appearing confused. Thought content: Patient denies suicidal or homicidal ideation, there were no delusions reported or noted, she denied any auditory or visual hallucinations. Attention and concentration were mostly intact but memory was clearly impaired with her thinking her had been for 2 to 3 years instead of the approximately 5 weeks. But none were formally tested. She is alert and oriented to person and place. Insight, judgment are impaired and impulse control is limited. That Vitals/I&O/Wt Last Vital Signs Temp 97.7 F 01/02/25 19:12 Pulse 70 01/03/25 18:00 Resp 16 01/03/25 18:00 BP 154/83 01/03/25 18:00 Pulse Ox 98 01/03/25 18:00 O2 Del Method Room Air 01/03/25 18:00 Weight last 48 hrs Weight 53.524 kg Data NPU 01/02/25 19:57 01/02/25 19:57 A&P Assessment and plan 1. Vitamin B 12 deficiency: 2. Altered mental status: 3. Dementia: 4. Moderate dementia: Plan: This is an 89-year-old white female with no identified history of mental health issues but some evidence of past psychiatric involvement based on her allergies from BuSpar, Klonopin and citalopram but with no active psychiatric medications but clear evidence of dementia at least moderate level with known treatment with donepezil who presents after being found wandering by her neighbors. 1. Continue current medication. 2. Clear signs of at least moderate dementia but no signs of any active mental health issues otherwise, no credible lethality and no need for any acute psychiatric care. 3. Agree that she is not capable of self-care and would benefit from [facility] placement. 4. Will attempt to get collateral information from family before proceeding. 5. Could get a KATELYN examination for more objective data but otherwise seems like straightforward dementia with need for placement for 24-hour assistance given her level of impairment. Unless there was a family member who was available and he able to commit to full observation. PDMP PDMP Reviewed: Not Reviewed Attestations NPU Medical Necessity Statement*: N/A please see provider note for medical necessity but agree that there is no need for any inpatient psychiatric care. Coding Level of Care Code Acute Code for Chg Fwd Diagnoses Vitamin B 12 deficiency E53.8 Altered mental status R41.82 Dementia F03.90 Moderate dementia F03.B0
[2025-01-03 21:00] VITALS: BP 136/88; PULSE 70; RESP 18; O2SAT 99
[2025-01-04] VITALS: BP 158/80; PULSE 71; RESP 18; O2SAT 97
[2025-01-04 05:13] VITALS: BP 162/86; PULSE 74; RESP 18; O2SAT 98
--- NOTE | 2025-01-04 08:25 | PC.NURSE ---
pt ambulating around ER with PSA to provide ROM.
--- NOTE | 2025-01-04 08:49 | PC.SOCIAL ---
Wheel Press Operator CM to room to see patient. CONSTANZA was requested by Dr. Grigsby to consult for SNF placement. She is currently on 96 hour hold and has 1:1 sitter. She is ambulatory in ER w/o assistive devices. She reports to CM that she lives alone, and her recently . CM discussed Contacts and patient can only tell CM that Miriam Gilmore is her niece. She also informs CM that she has two brothers Aixa Matt and Marge Matt. However, the 1:1 sitter @ bedside reports that she thinks the siblings have . CM does inquire if patient would be willing to go to SNF voluntarily and patient refuses at this time. CM updated Dr. Grigsby that since patient is on 96 hour hold she will require a level 2. [address] Matt has consulted and patient does not need [facility] as it is just her dementia worsening since her passed. CM inquired if hotline has been placed and he is unaware. CM updated that @ this time if family is not involved in order to go to SNF patient would need Level 2 and likely guardianship since she cannot sign herself in. CM also updates that patient does not have a payor source for shelter placement. CM called Iqra Cabrera and Anabel Ramirez w/ [facility] and both report that hotline has been placed and that it has been assigned to Crystal Russell. They will have Crystal call CONSTANZA. CM called and left message w/ Miriam. CM called and spoke to Marilyn Schaefer. She reports that patient has been living independently and they have concerns that she will burn the house down and/or wander off. CM does inquire if either her or Miriam would be willing to take patient home until arrangements can be made and she reports she is unable to as she does not have the space. She is not aware if Miriam would consider. She reports that Miriam is camping and will not be back until Tuesday. CM does inquire about patients financials and power of pipeline superintendent. Apryl reports that she thinks Miriam has been working on [facility]/ [facility] office in [place] and that Miriam usually helps patient pay her bills. She does not think that anyone else is on patients banking information. CM did update that patient does not have a payor source to go to SNF and that patient would be private pay. CM provided cost estimate of $6000-$7000/month and she reports she is not sure if patient can afford the cost. She also thinks that Miriam has taken patient to apply for OPAL. Crystal Russell @ [phone] calls CM and reports that family is wanting patient to go to SNF. CM discussed that SNF would be a good option, but patient cannot sign herself in and currently does not have a pay source for shelter placement and patient will need a level 2. She inquires if hospital will pursue guardianship and CM explained that we would not. She does inquire about interrogratories and CM will try and obtain from Dr. Matt. CM does inquire about plan for patient to DC from ER and she would like for CM to send referral to [facility] and she will call to f/up. CM will also fax to [facility], [facility], and [facility] @ this time. CM will continue to follow.
--- NOTE | 2025-01-04 11:06 | PC.SOCIAL ---
Heat Curer: CM called [facility] and spoke to Aden who reports that a level 2 will need to be initiated due to the psych eval, however once reviewed since Dementia is more progressed than any mental illness it will likely come back as a level 1 once reviewed.
--- NOTE | 2025-01-04 11:19 | PC.SOCIAL ---
Hand Stitcher: [facility] Access Code: [email or web address] completed and will need to be signed by Dr. Grigsby. Once Psych consult is available will need to upload and submit for Level 2 approval.
--- NOTE | 2025-01-04 11:21 | PC.SOCIAL ---
Garde Manger CM discussed w/ referral w/ Citlali @ [facility] and she will review. CM discussed that APS is involved and she does report that closest next of kin can sign patient into SNF, but w/o a guardian or DPOA patient could sign herself out if unable to be redirected. CM will continue to follow.
--- NOTE | 2025-01-04 12:12 | PC.SOCIAL ---
Hat Block Bench Hand Apryl Schaefer calls back and reports that she has reached out to the attorneys office of [employer] to see where paperwork progress is and what is being applied. However there is no one in the office today to be able to assist her and they will not be back until Tuesday/Tuesday.
--- NOTE | 2025-01-04 12:39 | PC.NURSE ---
per Case Management, pt has been accepted to [facility].
--- NOTE | 2025-01-04 12:40 | PC.NURSE ---
I received a message from Gurvinder Thomas, Tableau Analyst stating that [facility] would accept patient today and they would still need consultation documentation from Dr. Matt. I verified with Dr. Matt that this was complete. I informed Minoo of this. Nothing further needed at this time, Minoo is making ED aware.
--- NOTE | 2025-01-04 12:48 | PC.SOCIAL ---
Addendum entered by Minoo Thomas RN 01/04/25 12:49: CM notified of ER. [facility] is going to verify if they have transport available. Original Note: Electroplating Sales Representative Citlali from [facility] calls and reports that they can accept today. CM discussed conversation w/ Comru and she reports that since it is for dementia and should go back to level 1 they can still accept patient today. Psych consult uploaded to [facility] Access Code: [email or web address] and level 2 submitted @ this time.
--- NOTE | 2025-01-04 12:51 | PC.SOCIAL ---
Shaft Mechanic CM called and left message for Valeria Russell w/ [facility] to update of DC.
--- NOTE | 2025-01-04 13:12 | PC.SOCIAL ---
Social Service Viki from [facility] calls and reports that Apryl is refusing to sign patient into SNF. CM called Apryl and explained that patient does not have a medical necessity to be admitted to hospital and that SNF placement has been arranged for safe DC plan. CM updated that patient does not have medicaly necessity to be admitted to hospital and that patient will DC today. CM informed that she can assist w/ signing [facility] or she can come and pick patient up. CM reiterated that patient is being DC'd. CM called and left message w/ Crystal @ [facility]PS to update.
--- NOTE | 2025-01-04 13:20 | PC.NURSE ---
I received a return call from Gurvinder Thomas, Nut Processing Supervisor and she states that after speaking with patient's niece, Marilyn, she states she will not be willing to sign admission paperwork for patient at this time. When she was asked why, she was unable to provide an answer and stated that she would see what she could do and return our call. I called and spoke with her at 1437 and inquired if she had determined a time to meet patient at [facility]. She states that the other niece listed on patient's contact list, [place] checkbook down there and do all of that. I asked if she was willing to sign admission paperwork and she stated I don't know, you'll have to talk to her about it. I attempted to call Miriam and left two messages. I followed up with Minoo as well as Gretchen Townsend, Patient Photographic Technician and Bri Flores, Director of Emergency Services and let them know as well.
--- NOTE | 2025-01-04 15:10 | PC.NURSE ---
I received a call from Gurvinder Thomas, Workers' Compensation Claims Examiner stating that [facility] had called and reported that both nieces had called their facility and were refusing to sign admission paperwork for her. I inquired if [facility]PS had returned our calls today, to which Minoo stated no, she had left 3-4 messages today. I called and left a message at this time as well and asked Minoo to please reach out to APS supervisors to determine next steps. Minoo spoke with APS again and they requested Interrogatories from Dr. Matt, which he is completing. I called and spoke with Domitila on behalf of [facility] and informed her of the progress, stating that we would move forward with APS if able. In the meantime, Minoo spoke with patient's nieces again and they verbalized that they would send somebody to get her and take her back to her house, but wouldn't be staying with her. I spoke with Dr. Grigsby and he isn't in agreement with that plan. I also spoke with Gretchen and Monica again and Gretchen stated that since next of kin, patient's nieces, wanted patient to be d/c'd home and APS was involved but not willing to make emergency placement at this time, then there was likely nothing further we could do at this time.
--- NOTE | 2025-01-04 15:13 | PC.SOCIAL ---
Semiconductor Packages Sealer Citlali from [facility] calls and reports that they have spoken to both Marilyn and Miriam and neither one of them are willing to sign patient into the facility so they are unable to accept. CONSTANZA called both Apryl and Miriam, no answer, left message.
--- NOTE | 2025-01-04 15:16 | PC.SOCIAL ---
Urban Redevelopment Specialist CM called and left message w/ APS worker Crystal Russell to see if she may assist.
--- NOTE | 2025-01-04 16:13 | PC.SOCIAL ---
Business Technology Teacher Apryl called back and CM updated that since neither niece is willing to sign patient into [facility] that they will need to come pick patient up. She reports she is at work. CM explained that once she was done w/ work she could come and peanut picker patient. She request CM send her back to her home in a ambulance and CM explained that there is not medical necessity for EMS transport home. She tells CM that she will try and find someone to come and pick her up. She tells CM that patient cannot live w/ her. She tells CM that they will not agree to signing patient to care home because if she does not qualify for [facility] they will be liable for the bill and they cannot be liable for that expense. CONSTANZA spoke to Crystal Russell w/ [facility]PS and she is going to try and call family. She also is requesting interrogratories. Dr. Matt made aware and will complete interrogratories.
[2025-01-04 16:20] VITALS: BP 147/89; PULSE 70; RESP 17; O2SAT 95
--- NOTE | 2025-01-04 17:17 | PC.NURSE ---
I received a return call from Minoo that spoke with APS again, that stated unless patient's nieces are willing to sign something stating that they are responsible for patient's wellbeing and safety after leaving [facility], they do not feel like that d/c plan is safe for her. I inquired about emergency placement and she states that she also asked about that, however they stated [facility] won't work with them to make it work. I called and spoke with Domitila at [facility] and she states that they are willing to do anything needed, they just need somebody to sign admission paperwork on behalf of patient. I called back to Minoo and informed her of this, she states she will just give me phone number for APS contacts as follows: Valeria Russell and Valeria Anderson . I called Crystal Russell and reviewed the above information with her. She states that they are unable to file anything for emergency placement and without patient's nieces being willing to sign for her to be admitted, their hands are tied until she obtains a guardian. Their recommendation is if she doesn't qualify for admission until guardianship is obtained, allow her family to come and get her, but have a conversation with them and state that they are responsible for her safety and wellbeing until guardianship is completed. I spoke with Dr. Grigsby and he agreed and stated that he or the night filler physician, Dr. Erazo, would have that conversation with patient's family with a witness present. In the meantime of me speaking with Dr. Grigsby, patient's neighbor, Naomie, called and was inquiring about patient. I spoke with her and informed her of information at this time that was available, including inability for patient to go to [facility] at this time. She stated that she would be willing to sign admission paperwork and become patient's guardian as well if needed. I informed her I would discuss this with Risk Management and APS, then call her back. I called and spoke with Gretchen again and informed her of this. Upon discussion, her and I determined that if patient's nieces verbalized approval for the neighbor to sign her in, we could accept verbal consent with 2 witnesses and allow the neighbor to admit patient. I attempted to call both nieces x2 with all calls going immediately to voicemail. I called back to Valeria Anderson, Shaker Repairer for [facility]PS and reviewed the information above. She states that this would be appropriate as long as Naomie is willing to accept responsibility financially if Medicaid doesn't pay for her stay. I called back to Gretchen and informed her of this prior to calling back and speaking with Naomie. I reviewed the information with Naomie, then spoke with Doimtila again from [facility]. Citlali asked that I provide Naomie with her cell phone number and she will answer her questions. I spoke with Naomie again and provided her with Domitila's cell phone number. I followed up with Dr. Grigsby, Dr. Erazo, and nursing staff in ER and informed them of all of this. Dr. Erazo states he will have this conversation with patient's family if they show up and I will keep staff updated of potential for admission to [facility]. I followed up with Monica and Gretchen and informed them of this as well.
[2025-01-04 18:01] VITALS: RESP 16
--- NOTE | 2025-01-04 19:04 | PC.NURSE ---
I received f/u message from Domitila with [facility] and after talking to Naomie, she is willing to sign patient in at this time and attempt to seek guardianship. She states that she could accept her tonight, however she doesn't have transport or pharmacy available to fill her meds and inquired if they could send transportation and fill meds in the early am on 01/05. I called and spoke with Home, boatswain's mate in ED, Dr. Grigsby, and Dr. Erazo and they are in agreement with this plan. I followed up with Domitila and informed her of this. I also spoke with Naomie, patient's neighbor and informed her of this plan. She verbalizes understanding and is appreciative of the help. I informed Bri Flores, Director of Emergency Services and Gretchen Townsend, Patient Automatic Nailing Machine Feeder of this update as well.
[2025-01-04 20:00] VITALS: BP 140/82; PULSE 79; RESP 16; TEMP 37.1; O2SAT 97
--- NOTE | 2025-01-04 20:00 | PC.NURSE ---
provided patient with sandwich and drink. She is alert oriented to name and only. Very pleasant. Cares met.
[2025-01-05] VITALS: BP 135/85; PULSE 69; RESP 15; O2SAT 98
[2025-01-05 04:00] VITALS: BP 135/90; PULSE 72; RESP 16; O2SAT 98
--- NOTE | 2025-01-05 09:01 | PC.NURSE ---
report called to [facility] [place] to mary Fallon RN. no further questions at end of report. Monica states [facility] transport leaving at this time.
[2025-01-05 09:54] VITALS: BP 125/77; PULSE 85; RESP 16; TEMP 36.8; O2SAT 95
--- NOTE | 2025-01-05 10:00 | PC.NURSE ---
I checked in with Ronald Romero, RN to ensure Rx were sent to correct pharmacy for [facility] and provided the number for verbals to be called in. She attempted [facility] x2 fellmongering machine operator pharmacist and the line dropped both times. I spoke with Domitila, Network Systems Integrator of [facility] and she stated that they would be using [facility] today as it was local and open, so they would just take care of the Rx and send over a list or call them in as verbals.
--- NOTE | 2025-01-05 10:02 | PC.NURSE ---
per ED charge; Evonne Cardenas RN, printed prescriptions sent with patient's discharge paperwork; handed to [facility] transport staff.
== END 2025-01-05 09:56 | disposition home or self-care (01) ==
PROVIDERS: Emergency Medicine; Emergency Provider Family Medicine; PCP Family Medicine
DX: R41.82 Altered mental status, unspecified (principal); F03.90 Unspecified dementia, unspecified severity, without behavioral disturbance, psychotic disturbance, mood disturbance, and anxiety; Z11.52 Encounter for screening for COVID-19; Z79.02 Long term (current) use of antithrombotics/antiplatelets; I10 Essential (primary) hypertension
CPT/HCPCS: 36415; 70450; 71045; 80053; 80306; 80307; 81000; 81001; 82306; 82607; 84439; 84443; 84481; 85025; 87637; 93005; 96372; J1630; J9999

== ENCOUNTER 2025-05-17 10:32 | Emergency (ER) | payer MEDICARE, OTHER, MEDICAID, SELFPAY ==
[2025-05-17 10:36] VITALS: BP 135/70; PULSE 82; RESP 16; TEMP 36.8; O2SAT 94; BMI 24.0
--- NOTE | 2025-05-17 10:37 | XRR_ITS ---
PROCEDURE INFORMATION: Exam: XR Chest Exam date and time: 05/17/2025 10:40 AM Age: 89 years old Clinical indication: Shortness of breath; Additional info: N/v, SOB TECHNIQUE: Imaging protocol: Radiologic exam of the chest. Views: 1 view. COMPARISON: CR (CHEST, ) 01/03/2025 12:42 AM FINDINGS: Lungs: Unremarkable. No consolidation. Pleural spaces: Unremarkable. No pleural effusion. No pneumothorax. Heart/Mediastinum: Heart size is enlarged. Bones/joints: Unremarkable. XR/XR chest 1V portable [id number] IMPRESSION: Stable findings.
--- NOTE | 2025-05-17 10:39 | ED_ITS ---
HPI - SOB/Dyspnea 2 General: Chief Complaint: Shortness of Breath/Dyspnea Stated Complaint: SOB Time Seen by Provider: 05/17/25 10:34 Source: patient, EMS and old records reviewed Mode of arrival: EMS Limitations: no limitations History of Present Illness: HPI Narrative: Patient is an 89-year-old female who presents the emergency department from [facility] for reported nausea and vomiting today. group home called EMS for the symptoms and also stated patient was appearing more short of breath. On EMS arrival they had stated patient was shivering and was notably nauseous, they gave Zofran prehospital and that prior to my examination she has completely resolved. Patient is at baseline mentation, tells me that she has no complaints at this time and wants to go back. She does tell me that she was feeling pretty weak earlier today, but is not endorsing to me any shortness of breath or chest pain at this time. She states that she is not nauseous currently. No significant past medical history. MD elicited complaint: shortness of breath and anxiety (N/V) Timing: now resolved Associated symptoms: Reports nausea and vomiting; Deny abdominal pain, chest pain, fever(s), lightheadedness or palpitations Related Data Previous Rx's ?Medication ?Instructions ?Recorded Rollator walker #1 ea 04/06/23 gabapentin 100 mg capsule 100 mg PO BID #180 caps 11/20 06/16 amlodipine 5 mg tablet 5 mg PO DAILY #90 tabs 01/04 clopidogrel 75 mg tablet 75 mg PO DAILY #90 tabs 12/21 10/14 donepezil 10 mg tablet 10 mg PO .HS #90 tabs isosorbide mononitrate 30 mg 30 mg PO DAILY #90 tabs 0 01/04/25 tablet,extended release 24 hr Allergies Allergy/AdvReac Type Severity Reaction Status Date / Time aspirin Allergy Unknown unknown Verified 01/02/25 13:51 atorvastatin Allergy Unknown unknown Verified 01/02/25 13:51 buspirone Allergy Unknown unknown Verified 01/02/25 13:51 ciprofloxacin (From Cipro) Allergy Unknown unknown Verified 01/02/25 13:51 citalopram Allergy Unknown unknown Verified 01/02/25 13:51 clonazepam Allergy Unknown unknown Verified 01/02/25 13:51 guaifenesin Allergy Unknown unknown Verified 01/02/25 13:51 hydrochlorothiazide Allergy Unknown unknown Verified 01/02/25 13:51 lisinopril Allergy Unknown unknown Verified 01/02/25 13:51 metoprolol Allergy Unknown Unknown Verified 01/02/25 13:51 metronidazole Allergy Unknown Unknown Verified 01/02/25 13:51 onabotulinumtoxinA (From Allergy Unknown Unknown Verified 01/02/25 13:51 Botox) oxazepam Allergy Unknown unknown Verified 01/02/25 13:51 Penicillins Allergy Unknown unknown Verified 01/02/25 13:51 Tetracyclines Allergy Unknown unknown Verified 01/02/25 13:51 Review of Systems 2 General: Reports: 10 or more systems reviewed and unremarkable except in HPI and below Const: Denies: fever(s), chills or fatigue Card: Denies: chest pain, palpitations, swelling of feet/ankles or lightheadedness Resp: Reports: dyspnea; Denies: productive cough or wheezing GI: Reports: nausea and vomiting; Denies: abdominal pain, diarrhea or constipation : Denies: dysuria or urinary frequency Musc: Denies: neck pain, back pain or joint pain Neuro: Denies: headache(s), numbness in extremities or weakness in extremities PFSH ED 2 PFSH: Medical History Enrolled in chronic care management please do not remove from active GERD (gastroesophageal reflux disease) DJD (degenerative joint disease) Hypertension Trigeminal neuralgia First degree AV block Surgical History Hx of CABG (~2013) History of tubal ligation Hx of coronary angioplasty (~2014) Family History Other CAD (coronary artery disease) Hypertension Social History Smoking and tobacco/nicotine status: never used tobacco/nicotine Alcohol intake: never Lives independently: No Household members: spouse Marital status: Physical Exam 2 Const: COMMON NORMALS: no acute distress and no limitations GENERAL APPEARANCE: cooperative, comfortable and well developed O RIENTATION/CONSCIOUSNESS: Yes awake OTHER: At baseline mentation HENMT: COMMON NORMALS: normocephalic, atraumatic and hearing grossly normal bilaterally HEAD & SCALP: normocephalic and atraumatic Resp: COMMON NORMALS: normal respiratory effort, No retractions, No use of accessory muscles and clear to auscultation bilaterally AUSCULTATION: clear to auscultation bilaterally Cardio: COMMON NORMALS: regular rate, regular rhythm, No clicks present (Cardio), No murmurs present (Cardio) and No rub (Cardio) RATE: regular rate RHYTHM: regular rhythm GI: COMMON NORMALS: Normal to inspection, nondistended, normoactive bowel sounds present, Soft to palpation and non-tender AUSCULTATION: Yes normoactive bowel sounds PALPATION: Yes Soft to palpation RECTAL EXAM: d eferred Extremity: COMMON NORMALS: normal to inspection, full ROM and capillary refill normal Neuro: COMMON NORMALS: moves all extremities, no focal motor deficits and no sensory deficits noted Skin: COMMON NORMALS: no rashes or lesions noted GENERAL SKIN EXAM: no rashes or lesions noted Course 2 Vital Signs: Vital signs: Vital Signs Temperature 98.3 F 05/17/25 10:36 Pulse Rate 82 05/17/25 10:36 Respiratory Rate 16 05/17/25 10:36 Blood Pressure 135/70 05/17/25 10:36 Pulse Oximetry 94 05/17/25 10:36 Oxygen Delivery Me thod Room Air 05/17/25 10:36 MDM - SOB/Dyspnea Medical Decision Making Patient presented from [facility] for nausea and vomiting, complaints of shortness of breath there. Zofran given prehospital and this completely ameliorated the patient's symptoms prior to my history and physical. She had no complaints to me, is at baseline mentation, vitals have remained stable, her lab workup is reassuring, CBC CMP and urinalysis all unremarkable. Chest x-ray normal. EKG with mild QT prolongation likely secondary to the Zofran but no other ST segment changes. No electrolyte derangements. She will discharge back to correction. Lab Data 05/17/25 10:55 05/17/25 10:55 Labs/Radiology: Radiology Impressions Chest X-Ray 05/17/25 10:37 IMPRESSION: Stable findings. Laboratory Results WBC 7.12 10^3/uL (3.29-11.43) 05/17/25 10:55 RBC 4.00 10^6/uL (3.85-5.65) 05/17/25 10:55 Hgb 11.80 g/dL (11.27-16.99) 05/17/25 10:55 Hct 36.9 % (36-47) 05/17/25 10:55 MCV 92.3 fl (85-98) 05/17/25 10:55 MCH 29.5 pg (27-33) 05/17/25 10:55 MCHC 32.0 g/dL (30-55) 05/17/25 10:55 RDW 13.4 % (12.1-15.1) 05/17/25 10:55 Plt Count 169 10^3/cmm (157-399) 05/17/25 10:55 MPV 10.1 fL (7.4-10.4) 05/17/25 10:55 Neut % (Auto) 83.1 % 05/17/25 10:55 Lymph % (Auto) 9.0 % 05/17/25 10:55 Dundy % (Auto) 6.7 % 05/17/25 10:55 Eos % (Auto) 0.7 % 05/17/25 10:55 Baso % (Auto) 0.1 % 05/17/25 10:55 Neut # (Auto) 5.91 10^3/uL (1.8-7.7) 05/17/25 10:55 Lymph # (Auto) 0.6 10^3/uL (0.8-4.8) L 05/17/25 10:55 Dundy # (Auto) 0.5 10^3/uL (0.2-0.9) 05/17/25 10:55 Eos # (Auto) 0.1 10^3/uL (0.0-0.8) 05/17/25 10:55 Baso # (Auto) 0.0 10^3/uL (0.0-0.1) 05/17/25 10:55 Nucleated RBC % (auto) 0 % 05/17/25 10:55 Nucleated RBCs # 0.0 /100WBC 05/17/25 10:55 Sodium 140 mmol/L (136-145) 05/17/25 10:55 Potassium 3.3 mmol/L (3.5-5.1) L 05/17/25 10:55 Chloride 101 mmol/L (98-107) 05/17/25 10:55 Carbon Dioxide 29 mmol/L (22-29) 05/17/25 10:55 Anion Gap 13.3 (5-19) 05/17/25 10:55 BUN 17 mg/dL (8-23) 05/17/25 10:55 Creatinine 0.7 mg/dL (0.5-0.9) 05/17/25 10:55 GFR Calculation Not Reportable 05/17/25 10:55 Glucose 130 mg/dL (65-115) H 05/17/25 10:55 Calculated Osmolality 293 mOsm/kg (285-295) 05/17/25 10:55 Calcium 9.4 mg/dL (8.5-10.5) 05/17/25 10:55 Magnesium 2.1 mg/dL (1.7-2.3) 05/17/25 10:55 Total Bilirubin 0.5 mg/dL (0.15-1.2) 05/17/25 10:55 AST 17 U/L (0-32) 05/17/25 10:55 ALT 10 U/L (0-33) 05/17/25 10:55 Alkaline Phosphatase 76 U/L (35-105) 05/17/25 10:55 Total Protein 6.6 g/dL (6.6-8.7) 05/17/25 10:55 Albumin 4.1 g/dL (3.5-5.2) 05/17/25 10:55 Globulin 2.5 g/dL (1.3-4.6) 05/17/25 10:55 Urine Color Dark yellow (Yellow) A 05/17/25 10:59 Urine Appearance Clear (CLEAR) 05/17/25 10:59 Urine pH 6.0 (5-7) 05/17/25 10:59 Ur Specific Centuria 1.021 (1.005-1.030) 05/17/25 10:59 Urine Protein 2+ (Negative) A 05/17/25 10:59 Urine Glucose (UA) Negative (Normal) 05/17/25 10:59 Urine Ketones 3+ (Negative) H 05/17/25 10:59 Urine Blood Negative (Negative) 05/17/25 10:59 Urine Nitrate Negative (Negative) 05/17/25 10:59 Urine Bilirubin Negative (Negative) 05/17/25 10:59 Urine Urobilinogen 1.0 mg/dL (Negative) 05/17/25 10:59 Ur Leukocyte Esterase Trace (Negative) A 05/17/25 10:59 Urine RBC 6-10 /hpf (0-2) 05/17/25 10:59 Urine WBC 0-5 /hpf (0-5) 05/17/25 10:59 Ur Squamous Epith Cells 0-5 /hpf (0-5) 05/17/25 10:59 Amorphous Sediment Not Reportable 05/17/25 10:59 Urine Bacteria 1+ /hpf (NONE) H 05/17/25 10:59 Hyaline Casts 5.77 /lpf 05/17/25 10:59 Influenza A (PCR) Negative (Negative) 05/17/25 10:53 Influenza Type B (PCR) Negative (Negative) 05/17/25 10:53 RSV (PCR) Negative (Negative) 05/17/25 10:53 SARS-CoV-2 (PCR) Negative (Negative) 05/17/25 10:53 All radiology interpretation(s) finalized by discharge Discharge Plan Discharge Patient Disposition: Home Clinical Impression: Nausea & vomiting Qualifiers: Vomiting type: unspecified Qualified Code(s): R11.2 - Nausea with vomiting, unspecified Condition: Stable Prescriptions: No Action (DME) Hannah walker See Rx Instructions .Route .MEDSUPPLY Qty: 1 0RF Rx Instructions: As directed gabapentin 100 mg capsule 100 mg PO BID Qty: 180 1RF donepezil 10 mg tablet 10 mg PO .HS Qty: 90 1RF isosorbide mononitrate 30 mg tablet extended release 24 hr 30 mg PO DAILY Qty: 90 1RF clopidogrel 75 mg tablet 75 mg PO DAILY Qty: 90 1RF amlodipine 5 mg tablet 5 mg PO DAILY Qty: 90 1RF Discharge Orders: Discharge ED (Routine); Ordered 05/17/25 Ordered By: Gopal Howe Referrals: Alex Jin DO [Primary Care Provider, Family Practice] Patient Instructions: Patient Portal & Shaheed Instructions Activity Restrictions/Additional Instructions: Discharge Instructions for Nausea and Vomiting DISCHARGE INSTRUCTIONS Patient: 89-year-old female Discharge Date: May 17, 2025 Discharge Destination: group home Diagnosis: Nausea and vomiting, likely viral gastroenteritis or other benign etiology Summary of Emergency Department Visit: You were evaluated in the emergency department for nausea and vomiting. Your symptoms had improved by the time of examination. Laboratory tests were normal, and viral testing was negative. You are stable for discharge back to your correction. Discharge Instructions: Diet and Fluids: - Resume a regular diet as tolerated - Start with small, frequent meals if nausea returns - Maintain good hydration with clear fluids, water, or oral rehydration solutions (such as Pedialyte) - Avoid caffeinated beverages, alcohol, and very fatty or spicy foods until fully recovered Medications: - Continue all home medications as prescribed unless otherwise instructed - Anti-nausea medication may be given as needed if symptoms return (per correction provider orders) Activity: - Resume normal activities as tolerated - Rest as needed What to Watch For - Return to Emergency Department or Call 911 if: - Persistent vomiting that prevents you from keeping down fluids - Signs of dehydration: decreased urination, extreme thirst, dry mouth, dizziness when standing - Severe abdominal pain - Blood in vomit or stool - High fever (temperature greater than 101?F or 38.3?C) - Confusion or altered mental status - Chest pain or difficulty breathing - Inability to take important medications due to vomiting Notify Retirement Provider if: - Nausea or vomiting returns or worsens - Diarrhea develops or persists - Unable to maintain adequate fluid intake - Any new or concerning symptoms develop Follow-Up: - Follow up with your primary care provider or correction medical scribe as needed - No specific follow-up appointment required at this time unless symptoms return or worsen Additional Information: Your symptoms are consistent with a viral illness or other benign cause. Most cases resolve on their own within a few days with supportive care. The correction staff will monitor you closely and ensure you maintain adequate hydration and nutrition. Infection Control: Please practice good hand hygiene to prevent spread to other residents. group home staff should follow standard infection control precautions. Print Language: Slovenian Coding Level of Care Code ED Electrical Maintenance Mechanic for Denton Delgado
--- NOTE | 2025-05-17 10:49 | ECG_ITS ---
[facility] Date: 2025-05-17 Pat Name: Pam Mcclendon Department: Room: Gender: Female Surgeon/President: : 1935 Requested By: Gopal Wharton Order Number: [id number] Jones MD: FERNANDO DSOUZA Measurements Intervals Leming Rate: 59 P: -83 WY: 161 QRS: 65 QRSD: 98 T: 66 QT: 510 QTc: 507 Interpretive Statements SINUS BRADYCARDIA WITH OCCASIONAL SUPRAVENTRICULAR PREMATURE COMPLEXES INCOMPLETE RIGHT BUNDLE BRANCH BLOCK [90+ ms QRS DURATION, TERMINAL R IN V1/V2, 40+ ms S IN I/aVL/V4/V5/V6] PROLONGED QT INTERVAL CRITICAL TEST RESULT Compared to ECG 01/02/2025 20:00:06 Prolonged QT interval now present Sinus rhythm no longer present Myocardial infarct finding no longer present Electronically Signed On 05-19-2025 23:23:26 HEALTHCARE PROJECT MANAGER by FERNANDO DSOUZA [email or web address]
[2025-05-17 11:01] LABS: Hematocrit 36.9 % (36-47); Hemoglobin 11.80 g/dL (11.27-16.99); Mean Corpuscular HGB Conc 32.0 g/dL (30-55); Mean Corpuscular Hemoglobin 29.5 pg (27-33); Mean Corpuscular Volume 92.3 fl (85-98); Nucleated Red Blood Cells % 0 %; Platelet Count 169 10^3/cmm (157-399); Red Blood Count 4.00 10^6/uL (3.85-5.65); White Blood Count 7.12 10^3/uL (3.29-11.43)
[2025-05-17 11:05] LABS: Glucose Urine UA Negative (Normal); Nitrate Urine Negative (Negative); Specific Gravity, Urine 1.021 (1.005-1.030)
[2025-05-17 11:10] LABS: Add Urine Microscopic? YES
[2025-05-17 11:18] LABS: Alanine Aminotransferase 10 U/L (0-33); Albumin Level 4.1 g/dL (3.5-5.2); Alkaline Phosphatase 76 U/L (35-105); Anion Gap 13.3 (5-19); Aspartate Amino Transferase 17 U/L (0-32); Blood Urea Nitrogen 17 mg/dL (8-23); Calcium 9.4 mg/dL (8.5-10.5); Carbon Dioxide 29 mmol/L (22-29); Chloride 101 mmol/L (98-107); Globulin 2.5 g/dL (1.3-4.6); Glucose 130 mg/dL (65-115); Osmolality Calculated 293 mOsm/kg (285-295); Potassium 3.3 mmol/L (3.5-5.1); Sodium 140 mmol/L (136-145); Total Protein 6.6 g/dL (6.6-8.7)
[2025-05-17 11:33] LABS: Respiratory Syncytial Virus Ce NEGATIVE (Negative); SARS-CoV-2 PCR NEGATIVE (Negative)
[2025-05-17 12:00] LABS: Magnesium 2.1 mg/dL (1.7-2.3)
== END 2025-05-17 13:49 | disposition home or self-care (01) ==
PROVIDERS: Emergency Provider Physician Assistant; PCP Family Medicine
DX: R11.2 Nausea with vomiting, unspecified (principal); Z11.52 Encounter for screening for COVID-19; Z95.1 Presence of aortocoronary bypass graft; I10 Essential (primary) hypertension
CPT/HCPCS: 36415; 71045; 80053; 81001; 83735; 85025; 87637; 93005; 99285